=== PATIENT | male | born 1975 | race Caucasian/White ===

== ENCOUNTER 2016-06-03 14:15 | Emergency (ER) | payer BC ==
[~2016-06-03] VITALS: Ht 180.3 cm; Wt 84.1 kg
[~2016-06-03 14:15] MED LIST: MVI
[2016-06-03 14:18] VITALS: BP 173/128; PULSE 43; TEMP 97.3
[2016-06-03 14:54] LABS: BASO % 0.6 % (0.0-2.0); EOS # 0.1 (0.0-0.7); EOS % 1.4 % (0-4.0); GRAN # 2.9 (1.4-6.5); GRAN % 57.8 % (42.2-75.2); HEMATOCRIT 43.2 % (42.0-52.0); HEMOGLOBIN 14.7 g/dl (13.5-18.0); LYMPH # 1.6 (1.2-3.4); LYMPH % 31.7 % (20.0-51.0); MEAN CELL VOLUME 92 fl (80.0-100.0); MEAN CORPUSCULAR HEMOGLOBIN 31 pg (27.0-31.0); MEAN CORPUSCULAR HGB CONC 34 g/dl (33.0-37.0); MEAN PLATELET VOLUME 9.5 fl (7.4-10.4); MONO # 0.4 (0.1-0.6); MONO % 8.3 % (1.7-9.3); PLATELET COUNT 178 K/mm3 (130-400); REDCELL DISTRIBUTION WIDTH-CV 11.5 % (11.5-14.5); WHITE BLOOD COUNT 5.1 K/mm3 (4.8-10.8)
[2016-06-03 15:07] LABS: ALBUMIN 4.2 gm/dL (3.5-5.0); BILIRUBIN,TOTAL 0.6 mg/dL (0.0-1.0); CALCIUM 10.2 mg/dL (8.4-10.2); CREATININE, serum 1.09 mg/dL (0.66-1.25); TOTAL PROTEIN 6.9 gm/dL (6.4-8.2)
[2016-06-03 15:51] LABS: PH 6 (5-8); SQUAMOUS EPITHELIAL 0-2 /hpf; URINE APPEARANCE Clear; URINE BACTERIA None Seen /hpf; URINE BILIRUBIN Negative (NEGATIVE); URINE BLOOD Negative (NEGATIVE); URINE COLOR Yellow; URINE GLUCOSE Negative (NEGATIVE); URINE KETONE Negative (NEGATIVE); URINE RBC 0-2 /hpf; URINE UROBILINOGEN Negative (NEGATIVE); URINE WBC 0-2 /hpf
[2016-06-03] MEDS ORDERED: PROTONIX 40MG T40 MG PO (17:22)
[2016-06-03] MEDS ORDERED: CIPRO 500MG TA500 MG PO (17:22)
== END 2016-06-03 17:50 | disposition home or self-care (01) ==
LOC: COL.ER 14:15
PROVIDERS: Family Medicine
DX: K52.9 Noninfective gastroenteritis and colitis, unspecified (principal); K29.70 Gastritis, unspecified, without bleeding
CPT/HCPCS: J1170; J2270; J2405; J7030; Q9967

== ENCOUNTER 2018-05-21 15:13 | Outpatient (RCR) | payer OTHER ==
[~2018-05-21 15:13] MED LIST changes: +CIPRO 500MG TA500 MG PO; +PROTONIX 40MG T40 MG PO
== END 2018-08-19 | disposition home or self-care (01) ==
LOC: WSOH
DX: S67.191A Crushing injury of left index finger, initial encounter (principal); S60.022A Contusion of left index finger without damage to nail, initial encounter; W22.8XXA Striking against or struck by other objects, initial encounter; Y92.59 Other trade areas as the place of occurrence of the external cause; Y99.0 Civilian activity done for income or pay; Z23 Encounter for immunization

== ENCOUNTER 2018-10-27 00:17 | Emergency (ER) | payer SELFPAY ==
[~2018-10-27] VITALS: Ht 180.3 cm; Wt 86.4 kg
[2018-10-27 00:17] VITALS: BP 141/95; TEMP 98.7
[2018-10-27 00:50] LABS: BASO % 0.6 % (0.0-2.0); EOS # 0.1 (0.0-0.7); GRAN # 3.1 (1.4-6.5); GRAN % 48.7 % (42.2-75.2); HEMOGLOBIN 13.6 g/dl (13.5-18.0); LYMPH # 2.4 (1.2-3.4); LYMPH % 38.6 % (20.0-51.0); MEAN CELL VOLUME 92 fl (80.0-100.0); MEAN CORPUSCULAR HEMOGLOBIN 31 pg (27.0-31.0); MEAN CORPUSCULAR HGB CONC 34 g/dl (33.0-37.0); MEAN PLATELET VOLUME 9.1 fl (7.4-10.4); MONO # 0.7 (0.1-0.6); MONO % 10.8 % (1.7-9.3); PLATELET COUNT 155 K/mm3 (130-400); RED BLOOD COUNT 4.36 M/mm3 (4.20-5.60); REDCELL DISTRIBUTION WIDTH-CV 11.9 % (11.5-14.5)
[2018-10-27 01:02] LABS: URIC ACID 4.8 mg/dL (3.5-8.5)
[2018-10-27] MEDS ORDERED: MOBIC 7.5MG7.5 MG PO (01:46)
[2018-10-27 02:12] VITALS: PULSE 65
== END 2018-10-27 02:05 | disposition home or self-care (01) ==
LOC: COL.ER 00:17
PROVIDERS: Nurse Practitioner
DX: M25.571 Pain in right ankle and joints of right foot (principal); Z87.891 Personal history of nicotine dependence; Z88.5 Allergy status to narcotic agent; Z88.2 Allergy status to sulfonamides